=== PATIENT | male | born 1990 | race Two or more races ===

== ENCOUNTER 2016-07-28 08:16 | Emergency (ER) | payer MEDICAID ==
[~2016-07-28] VITALS: Ht 170.2 cm; Wt 104.3 kg
[~2016-07-28 08:16] MED LIST: DIAZ10GE; IBU800T; NOR10T
[2016-07-28 10:00] VITALS: BP 130/79
[2016-07-28] MEDS ORDERED: KETOROLAC TROMETH 60MG/2ML VIAL IM ONE (10:00)
== END 2016-07-28 10:37 | disposition left against medical advice (07) ==
LOC: ER 08:18
DX: S09.8XXA Other specified injuries of head, initial encounter (principal); M54.2 Cervicalgia; M19.90 Unspecified osteoarthritis, unspecified site; F11.90 Opioid use, unspecified, uncomplicated; F17.210 Nicotine dependence, cigarettes, uncomplicated; F12.10 Cannabis abuse, uncomplicated; Z79.899 Other long term (current) drug therapy; V48.5XXA Car driver injured in noncollision transport accident in traffic accident, initial encounter; Y93.89 Activity, other specified; Y99.8 Other external cause status; Y92.488 Other paved roadways as the place of occurrence of the external cause
CPT/HCPCS: 70450; 72125; 96372; 99284; J1885

== ENCOUNTER 2017-03-04 12:17 | Emergency (ER) | payer MEDICAID ==
[~2017-03-04] VITALS: Ht 175.3 cm; Wt 95.3 kg
[2017-03-04 12:28] VITALS: BP 132/91
== END 2017-03-04 16:40 | disposition left against medical advice (07) ==
LOC: EDUNIT# 12:17 → ER 12:17
DX: F15.93 Other stimulant use, unspecified with withdrawal (principal); Z53.21 Procedure and treatment not carried out due to patient leaving prior to being seen by health care provider

== ENCOUNTER 2017-04-03 21:43 | Emergency (ER) | payer MEDICAID ==
[~2017-04-03] VITALS: Ht 175.3 cm; Wt 94.3 kg
[2017-04-03 22:21] VITALS: BP 148/101
== END 2017-04-04 01:25 | disposition left against medical advice (07) ==
LOC: ER 21:43
DX: S80.211A Abrasion, right knee, initial encounter (principal); M25.512 Pain in left shoulder; Z53.21 Procedure and treatment not carried out due to patient leaving prior to being seen by health care provider; Y08.89XA Assault by other specified means, initial encounter

== ENCOUNTER 2024-04-12 20:13 | Emergency (ER) | payer MEDICAID ==
[~2024-04-12] VITALS: Ht 172.7 cm; Wt 95.0 kg
[2024-04-12 21:00] VITALS: BP 156/106; TEMP 99.4
[2024-04-12 21:05] VITALS: PULSE 106; RESP 18; O2SAT 96
== END 2024-04-12 21:12 | disposition home or self-care (01) ==
LOC: ER 20:13
DX: I10 Essential (primary) hypertension (principal); F12.10 Cannabis abuse, uncomplicated; F11.10 Opioid abuse, uncomplicated; F17.210 Nicotine dependence, cigarettes, uncomplicated; F41.9 Anxiety disorder, unspecified; M19.90 Unspecified osteoarthritis, unspecified site; Z65.3 Problems related to other legal circumstances